=== PATIENT | male | born 1960 | race Caucasian/White ===

== ENCOUNTER 2019-12-04 01:13 | Outpatient (CLI) | payer OTHER, SELFPAY ==
[2019-12-04 19:05] LABS: SARS-CoV-2 RNA PCR Negative
== END 2019-12-04 01:14 | disposition home or self-care (01) ==
LOC: ANHCOVIDDT 01:13
PROVIDERS: PCP Internal Medicine; Visit Provider Internal Medicine Gastroenterology
DX: Z01.812 Encounter for preprocedural laboratory examination (principal); Z20.828 Contact with and (suspected) exposure to other viral communicable diseases
CPT/HCPCS: 87635; C9803; U0003

== ENCOUNTER 2019-12-06 05:14 | Day surgery (SDC) | payer OTHER, SELFPAY ==
[2019-11-30 10:23] VITALS: BMI 36.8
--- NOTE | 2019-12-05 07:58 | WPDANESEPPF ---
Anes - Initial Pre Proc Eval Procedure: Operation Date: 12/06/19 07:30 Proposed Procedures p Screening Colonoscopy - Joselito Majano MD Date/Time: 12/05/19 07:58 Surgeon: Joselito Majano MD Pre Op Diagnosis: family hx colon CA Patient Data Age: 59 Gender: M Height: 1.75 m Weight: 113 kg Allergies Allergy/AdvReac Type Severity Reaction Status Date / Time adhesive Allergy Intermediate RASH Verified 12/06/19 06:29 cephalexin Allergy Intermediate Itching Verified 12/06/19 06:29 naproxen [From Aleve] Allergy Intermediate Hives Verified 12/06/19 06:29 Home Medications Medication Instructions Recorded Confirmed Type cetirizine 10 mg tablet 10 mg PO DAILY 02/12/19 11/30/19 History cholecalciferol (vitamin D3) 50 2,000 unit PO DAILY 02/12/19 11/30/19 History mcg (2,000 unit) tablet atorvastatin 80 mg tablet 80 mg PO DAILY #90 tablet 10/08/19 11/30/19 Rx sildenafil 50 mg tablet 50 mg PO DAILY PRN #30 tablet 10/08/19 11/30/19 Rx metformin 500 mg tablet 500 mg PO BID #180 tablet 10/22/19 12/06/19 Rx lisinopril 20 mg PO DAILY 11/30/19 12/06/19 History Patient hx anesthesia problems: none Family hx anesthesia problems: none PMFSH Past Medical History Medical History (Updated 12/06/19 @ 06:48 by Shashi Contreras DO) Diabetes type 2, controlled Hyperlipidemia Hypertension BRENNA (obstructive sleep apnea) CPAP Family History Family History (Updated 02/21/18 @ 13:09 by DOCTOR UNKNOWN) Sibling Hypertension Carcinoma of colon Patient's sister is in good health Patient's brother is in good health Father Family history of lung cancer Family history of coronary artery disease Mother Family history of lung cancer Other Family history of cardiovascular disease Social History Social History Smoking packs per day: 1 Smoking cigarettes per day: 20.0 Years smoked: 15 Smoking pack-years: 15.00 Smoking status: Former smoker Tobacco type: cigarettes Smoking end date: 02/08/00 Alcohol intake: never Substance use: never Substance use type: does not use Spiritual care concerns: No Anes - Eval Final PreProcedure Day of Procedure 12/05/19 07:58 Patient weight: obese Heart: regular rate and rhythm Lungs: clear to auscultation and normal air movement Airway: Mallampati scale class II Neurological: alert and oriented Last oral intake: >/= 8 hours ASA classification: III Emergent: no Anesthetic plan: proceed Anesthesia type and monitoring: general GIVS and standard monitoring Informed Consent: The patient's anesthetic plan and its attendant risks and benefits were discussed with the patient/family/POA. Questions were solicited and answers provided to the satisfaction of the patient/family/POA.
[2019-12-06 06:30] VITALS: BP 126/83; PULSE 73; RESP 20; TEMP 35.9; O2SAT 98
[2019-12-06] MEDS: LACTATED RINGERS 1,000 ML 150 ML IV CONT (06:43)
[2019-12-06 06:49] LABS: Glucose Point of Care 116 (65-105)
--- NOTE | 2019-12-06 07:01 | P.HP_ITS ---
History of Present Illness History of Present Illness Consent: Risks, benefits, and alternatives have been discussed and questions answered. Patient agrees to proceed with procedure. Chief complaint: family hx colon CA Narrative: Yovani Topete is a 59 year old W male Referred for screening colonoscopy secondary to family history of colon cancer in his brother diagnosed less than age 60. Patient also history of colonic polyps. His last colonoscopy was 3 years ago at which time several small hyperplastic polyps were removed. Patient is asymptomatic. [facility] Past Medical History Medical History Diabetes type 2, controlled Hyperlipidemia Hypertension BRENNA (obstructive sleep apnea) CPAP Family History Family History (Updated 02/21/18 @ 13:09 by DOCTOR UNKNOWN) Sibling Hypertension Carcinoma of colon Patient's sister is in good health Patient's brother is in good health Father Family history of lung cancer Family history of coronary artery disease Mother Family history of lung cancer Other Family history of cardiovascular disease Social History Social History Smoking packs per day: 1 Smoking cigarettes per day: 20.0 Years smoked: 15 Smoking pack-years: 15.00 Smoking status: Former smoker Tobacco type: cigarettes Smoking end date: 02/08/00 Alcohol intake: never Substance use: never Substance use type: does not use Spiritual care concerns: No Meds Home Medications and Allergies Home Medications Medication Instructions Recorded Confirmed Type cetirizine 10 mg tablet 10 mg PO DAILY 02/12/19 11/30/19 History cholecalciferol (vitamin D3) 50 2,000 unit PO DAILY 02/12/19 11/30/19 History mcg (2,000 unit) tablet atorvastatin 80 mg tablet 80 mg PO DAILY #90 tablet 10/08/19 11/30/19 Rx sildenafil 50 mg tablet 50 mg PO DAILY PRN #30 tablet 10/08/19 11/30/19 Rx metformin 500 mg tablet 500 mg PO BID #180 tablet 10/22/19 12/06/19 Rx lisinopril 20 mg PO DAILY 11/30/19 12/06/19 History Allergies Allergy/AdvReac Type Severity Reaction Status Date / Time adhesive Allergy Intermediate RASH Verified 12/06/19 06:29 cephalexin Allergy Intermediate Itching Verified 12/06/19 06:29 naproxen [From Aleve] Allergy Intermediate Hives Verified 12/06/19 06:29 Vital Signs Vital Signs - 24 hr 12/06/19 06:30 Temperature 35.9 C L Pulse Rate 73 Respiratory Rate 20 Blood Pressure 126/83 Pulse Oximetry 98 Exam Const: Orientation/consciousness: patient oriented x3 Resp: Auscultation: clear to auscultation bilaterally Cardio: Rate: regular rate Rhythm: regular rhythm Heart sounds: no murmurs GI: GI Palp: Yes Soft to palpation, No Tenderness to palpation present (GI), Yes No hepatosplenomegaly present and No Palpable mass present Auscultation: normal bowel sounds Neuro: General: patient oriented x3 and no focal motor deficits Extrem: General: no pedal edema Assessment and Plan Additional Plan screening colonoscopy in high risk patient
[2019-12-06] MEDS: SIMETHICONE ORAL SUSPENSION 20 MG/0.3 ML 30 ML BOTTLE 0.6 ML IRRIGATION (07:47)
[2019-12-06 07:50] VITALS: BP 105/57; PULSE 62; RESP 25; O2SAT 95
[2019-12-06 08:00] VITALS: BP 116/68; PULSE 62; RESP 18; O2SAT 95
[2019-12-06 08:10] VITALS: BP 110/60; PULSE 61; RESP 18; O2SAT 95
[2019-12-06 08:19] VITALS: BP 122/68; PULSE 60; RESP 20; O2SAT 95
== END 2019-12-06 08:39 | disposition home or self-care (01) ==
PROVIDERS: PCP Internal Medicine; Visit Provider Internal Medicine Gastroenterology
PROC: 0DJD8ZZ Inspection of Lower Intestinal Tract, Via Natural or Artificial Opening Endoscopic (ICD-10-PCS; CPT 45378; principal; 2019-12-06 07:30)
DX: Z12.11 Encounter for screening for malignant neoplasm of colon (principal); D12.3 Benign neoplasm of transverse colon; K57.30 Diverticulosis of large intestine without perforation or abscess without bleeding; Z80.0 Family history of malignant neoplasm of digestive organs; I10 Essential (primary) hypertension; E78.5 Hyperlipidemia, unspecified; E11.9 Type 2 diabetes mellitus without complications; G47.33 Obstructive sleep apnea (adult) (pediatric); Z79.84 Long term (current) use of oral hypoglycemic drugs; Z87.891 Personal history of nicotine dependence; E66.9 Obesity, unspecified; Z68.38 Body mass index [BMI] 38.0-38.9, adult
CPT/HCPCS: 45385; 88305; J2704; J7120